=== PATIENT | female | born 1990 | race Two or more races ===

== ENCOUNTER 2025-02-17 12:42 | Outpatient (RCR) | payer MEDICAID, SELFPAY ==
--- NOTE | 2025-01-27 12:56 | XR_ITS ---
Examination: Biophysical profile, ultrasound Date and time of exam: January 27, 2025 1259 hours INDICATIONS: Diagnosis maternal obesity complicating Technique: Multiple transabdominal sonographic images of the pelvis abdomen obtained. Attention is directed to the breathing movement, gross body movement, amniotic fluid volume and tone. Findings: Amniotic fluid index 13.2 cm Total biophysical profile is 8 of 8. breathing movement is 2. Gross body movement is 2. tone is 2. Qualitative amniotic fluid volume is 2 Impression: Biophysical profile is 8 of 8.
[2025-01-27 13:37] VITALS: BP 133/79; PULSE 78; RESP 16; TEMP 36.7
--- NOTE | 2025-02-03 13:01 | XR_ITS ---
Examination: Biophysical profile, ultrasound Date and time of exam: February 03, 2025 1311 hours INDICATIONS: Maternal obesity, containing diagnosis Technique: Multiple transabdominal sonographic images of the pelvis abdomen obtained. Attention is directed to the breathing movement, gross body movement, amniotic fluid volume and tone. Findings: Amniotic fluid index 13.8 cm Total biophysical profile is 8 of 8. breathing movement is 2. Gross body movement is 2. tone is 2. Qualitative amniotic fluid volume is 2 Impression: Biophysical profile is 8 of 8.
[2025-02-03 13:34] VITALS: BP 119/76; PULSE 81; RESP 16
--- NOTE | 2025-02-10 12:37 | XR_ITS ---
Examination: Biophysical profile, ultrasound Date and time of exam: February 10, 2025 1257 hours INDICATIONS: Diagnosis maternal obesity, complicating Technique: Multiple transabdominal sonographic images of the pelvis abdomen obtained. Attention is directed to the breathing movement, gross body movement, amniotic fluid volume and tone. Findings: Amniotic fluid index 10.4 cm Total biophysical profile is 8 of 8. breathing movement is 2. Gross body movement is 2. tone is 2. Qualitative amniotic fluid volume is 2 Impression: Biophysical profile is 8 of 8.
[2025-02-10 13:14] VITALS: BP 122/72; PULSE 80; RESP 16; TEMP 36.7
--- NOTE | 2025-02-17 12:53 | XR_ITS ---
Examination: Biophysical profile, ultrasound Date and time of exam: February 17, 2025 1302 hours INDICATIONS: Diagnosis maternal obesity complicating Technique: Multiple transabdominal sonographic images of the pelvis abdomen obtained. Attention is directed to the breathing movement, gross body movement, amniotic fluid volume and tone. Findings: Amniotic fluid index 13.5 cm Total biophysical profile is 8 of 8. breathing movement is 2. Gross body movement is 2. tone is 2. Qualitative amniotic fluid volume is 2 Impression: Biophysical profile is 8 of 8.
[2025-02-17 13:21] VITALS: BP 134/78; PULSE 75; RESP 16; TEMP 36.8
== END 2025-02-17 23:59 | disposition home or self-care (01) ==
LOC: S4S1 12:42
PROVIDERS: Referring Provider Nurse Practitioner Women's Health; Visit Provider Nurse Practitioner Women's Health
DX: O99.213 Obesity complicating pregnancy, third trimester (principal); E66.9 Obesity, unspecified; Z3A.39 39 weeks gestation of pregnancy
CPT/HCPCS: 59025; 76819

== ENCOUNTER 2025-02-20 17:50 | Inpatient (IN) | payer MEDICAID, SELFPAY ==
[2025-02-20] VITALS (11 sets, daily range): BP systolic 126–158; BP diastolic 71–92; PULSE 69–85; RESP 16; TEMP 36.9–37.7; BMI 36.7
[2025-02-20] MEDS: RINGERS LACTATED 1000 ML 1,000 ML 100 ML IV (18:20)
[2025-02-20 18:29] LABS: Basophils % (Auto) 0 % (0-2.5); Eosinophils # (Auto) 0.1 Thou/mm3 (0.0-0.5); Eosinophils % (Auto) 1 % (0-10); Hematocrit 30.6 % (36.0-46.0); Hemoglobin 10.7 g/dL (12.0-16.0); Immature Granulocytes % (Auto) 0 % (0-0); Immature Granulocytes Auto 0.03 Thou/mm3 (0.00-0.00); Lymphocytes # (Auto) 2.3 Thou/mm3 (1.0-4.8); Lymphocytes % (Auto) 26 % (10-50); Mean Corpuscular Hemoglobin 27.6 pg (25.0-35.0); Mean Corpuscular Volume 79 fL (80-100); Monocytes # (Auto) 0.6 Thou/mm3 (0.0-0.8); Monocytes % (Auto) 6 % (0-12); Neutrophils # (Auto) 6.1 Thou/mm3 (1.8-7.7); Neutrophils % (Auto) 67 % (37-80); Nucleated Red Blood Cell % 0 /100 WBC (0); Platelet Count 288 Thou/mm3 (140-440); Red Blood Count 3.87 Miln/mm3 (4.00-5.20); White Blood Count 9.1 Thou/mm3 (3.6-11.0)
--- NOTE | 2025-02-20 19:26 | XR_ITS ---
Examination: Complete OB ultrasound greater than 14 weeks Date and time of exam: February 20, 2025 1946 hours INDICATIONS: Preinduction, diagnosis velamentous cord insertion Findings: Viable intrauterine single fetus with single amniotic sac presentation cephalic Placenta anterior grade 2 Umbilical cord insertion 3 vessel seen Amniotic fluid index 8.5 cm Cervix 4.6 cm No resistive scanner by bowel gas. Composite estimated gestational age based on BPD, head circumference, abdominal circumference, femur length is 39 weeks 2 days Estimated weight 3790 g. Survey of intracranial anatomy, spinal anatomy, abdominal anatomy, four-chamber heart performed with no abnormalities identified. Impression: Viable intrauterine gestation cephalic presentation.
--- NOTE | 2025-02-20 19:31 | ESHP_ITS ---
Documentation for date of: 02/20/25 OB Labor/Induct. HPI History of Present Illness Chief complaint: 34 y/o 40w 1d Female presents to L&D for IOL : 2 Para: 1 Term pregnancies: 1 pregnancies: 0 Living children: 0 History of Abortions: Spontaneous and Elective: 0 History of Vaginal deliveries: 1 History of sections: No History of : No JUAN C: 02/19/25 Gestational Age (weeks): 40 Gestational Age (days): 1 Indication for induction: medical complication History of present illness: 34 y/o Female presents to L&D for IOL due to velamentous cord insertion, and left lateral accessory lobe and Obesity. Cervix is 1/thick/-4 vertex ballotable, not engaged. GBS is positive. Pt's last sono from [facility] was on 01/07/25 SIUP measuring 33w 6d consistent with JUAN C. Humerus measures small for gestational age, all other biometry WNL. EFW 2499g, growth 70%ile, ELIAS is normal, anatomy is normal, placenta previa has resolved, placenta is anterior, left lateral, accessory lobe. presentation oblique, head right. Velamentous cord insertion is again noted. BPP 8/8. EFW 3700g History of Present Dating criteria: LMP confirmed by 1st trimester US Adequate Care: Yes Ultrasounds: normal 1st trimester US, normal mid trimester US and abnormal US findings (Velamentous cord insertion and accessory lobe in the placenta) Obstetrical complications: other (Anemia, velamentous cord insertion and accessory lobe) Labs Maternal Blood Type: A Pos Labs: Positive: Rubella Titre and Group Beta Strep, Negative: RPR, Hepatitis B, HIV, Chlamydia and Gonorrhea and Unknown: Herpes Type 1, Herpes Type 2 and Covid-19 Review of Systems Review of Systems Systems Reviewed: All systems reviewed, normal except as documented Past Medical History Surgical History SURGICAL: Negative Section Meds Home Medications and Allergies Home Medications ?Medication ?Instructions ?Recorded ?Confirmed ?Type vits no.124-ferrous fum 1 tab PO QDAY 0 10/05/19 History 27 mg iron-folic acid 800 mcg tablet ( Vitamin) Allergies Allergy/AdvReac Type Severity Reaction Status Date / Time No Known Drug Allergies Allergy Verified 10/05/19 06:40 OB Exam Physical Exam Vital signs: Temp Pulse BP 99.9 F 83 141/71 H 02/20/25 19:01 02/20/25 19:17 02/20/25 19:17 Constitutional Constitutional: no acute distress Routine HEENT Exam Head: Present normocephalic and atraumatic Eye: Present EOMI and PERRL ENT: Present mucous membranes moist Routine Neck Exam Neck: Present full ROM Routine Respiratory Exam Respiratory: Absent respiratory distress Routine Cardiovascular Exam Cardiovascular: Present RRR Routine Abdominal Exam Abdominal: Present soft and normoactive bowel sounds Comments: Gravid Uterus 3700g Routine Exam External: Present normal urethra appearance; Absent lesions Detailed Labor and Delivery Exam Dilation (cm): 1 Effacement (%): thick Cervix position: posterior station: -4 Consistency: medium Presentation: Vertex (Per RN exam) Membranes: intact Baseline heart rate: 125 monitor accelerations: 15x15 monitor decelerations: None buttermaker helper variability: Moderate (11-25) Contraction frequency (min): Irregular Routine Extremities Exam Extremities: Present full ROM Routine Back/Spine/Pelvis Exam Back/Spine: Present full ROM Routine Skin Exam Skin: Present intact, dry and warm Routine Neurological Exam Neurological: Present alert, oriented X3 and CN II-XII intact Routine Psychiatric Exam Psychiatric: Present normal affect and normal thought process OB Results Labs 02/20/25 18:10 Labs: Short CBC 02/20/25 Range/Units 18:10 WBC 9.1 (3.6-11.0) Thou/mm3 Hgb 10.7 L (12.0-16.0) g/dL Hct 30.6 L (36.0-46.0) % Plt Count 288 (140-440) Thou/mm3 OB Assessment & Plan Assessment and Plan (1) Encounter for induction of labor: Status: Acute (2) Velamentous insertion of umbilical cord: Status: Acute (3) Obesity affecting in third trimester: Status: Acute (4) Post term over 40 weeks: Status: Acute Additional Plan Induction method: per misoprostol protocol Plan: induction, anticipate NVD, GBS prophylaxis tx and consult MD guzman Additional Plan Comment: Routine Admit orders Ordered Complete sono for presentation and EFW Consult anesthesia for an epidural Ok to eat regular diet early in the induction process Intermittent monitoring is ok Dr. Hicks updated (2) Velamentous insertion of umbilical cord Qualifiers: Trimester: third trimester Qualified Code(s): O43.123 - Velamentous insertion of umbilical cord, third trimester (3) Obesity affecting in third trimester Qualifiers: Obesity type affecting : other obesity due to excess calories Q ualified Code(s): O99.213 - Obesity complicating , third trimester; E66.09 - Other obesity due to excess calories
[2025-02-20 19:45] LABS: Syphilis Nonreactive (Nonreactive)
[2025-02-20] MEDS: MISOPROSTOL 50 mCg TABLET PO (21:20)
[2025-02-20] MEDS: RINGERS LACTATED 500 ML 500 ML 999 ML IV (23:30)
[2025-02-21] VITALS (249 sets, daily range): BP systolic 94–178; BP diastolic 41–91; PULSE 59–172; RESP 16–19; TEMP 36.8–37.5; O2SAT 90–100
[2025-02-21] MEDS: MISOPROSTOL 50 mCg TABLET PO (03:22)
[2025-02-21] MEDS: RINGERS LACTATED 500 ML 500 ML 999 ML IV (04:35)
[2025-02-21] MEDS: TERBUTALINE SULF INJ 1 MG/ML VIAL 0.25 MG SC ×2 (05:24→08:07)
[2025-02-21] MEDS: Ampicillin Inj 2,000 MG in SODIUM CHLORIDE 0.9% (POP) 100 ML 200 MG IV (08:07)
--- NOTE | 2025-02-21 09:16 | PD.LDPN ---
Documentation for date of: 02/21/25 OB Labor Progress Note Pain Control Pain control: epidural Pelvic Exam Dilation (cm): 6 Effacement (%): 90 station: -1 Amniotic membrane status: Intact Contractions Monitor mode: External Contraction frequency: 2-3 Contraction phase: Contraction Contraction intensity: Strong Status status: Category l Assessment and Plan Assessment: active labor Plan OB labor note: continuous present management Comments: Pt is comfortable with her epidural She has received 1 dose of ampicillin 2 doses of cytotec and progressing well Updated Dr. Kurt Poe
[2025-02-21] MEDS: Ampicillin Inj 1,000 MG in SODIUM CHLORIDE 0.9% (Popper) 50 ML 50 MG IV ×2 (12:01→16:11)
--- NOTE | 2025-02-21 13:24 | PD.LDPN ---
Documentation for date of: 02/21/25 OB Labor Progress Note Pain Control Pain control: epidural Pelvic Exam Dilation (cm): 7 Effacement (%): 90 station: 0 Amniotic membrane status: Ruptured (AROM- clear) Contractions Monitor mode: External Contraction frequency: 2-4 Contraction phase: Contraction Contraction intensity: Moderate Status status: Category l Assessment and Plan Assessment: active labor Plan OB labor note: continuous present management Comments: Pt has received 2 doses of ampicillin for GBS AROM performed - clear fluids Fetus is an OP position, RN will place pt on peanut ball and frequent turning Dr. Hicks updated Anticipate
[2025-02-21] MEDS: RINGERS LACTATED 1000 ML 1,000 ML 100 ML IV (14:35)
--- NOTE | 2025-02-21 19:07 | PD.LDPN ---
Documentation for date of: 02/21/25 OB Labor Progress Note Pain Control Pain control: epidural Pelvic Exam Dilation (cm): 10 Effacement (%): 100 station: 0 Amniotic membrane status: Ruptured Contractions Monitor mode: External Contraction frequency: 1-2 Contraction pattern: Tachysystole Contraction phase: Contraction Contraction intensity: Moderate Status status: Category l Assessment and Plan Assessment: other (2ns stage) Plan OB labor note: continuous present management Comments: Pushed with pt for 1 hour no descend, fetus in OP presentation. Turned off the epidural and allow pt to feel pressure and push once fetus is lower station. Pt placed on peanut ball and low dose pitocin per protocol Anticipate
[2025-02-21] MEDS: OXYTOCIN in NS 30 units 30 UNIT/500 ML BAG IV (19:11)
[2025-02-21] MEDS: MINERAL OIL 30 ML UDC TOP (19:44)
--- NOTE | 2025-02-21 20:09 | PD.LDDELS ---
Data ([place]) Data Hx Section: No Maternal Blood Type: A Pos Rubella Titre: Positive RPR: Non-reactive Labs: Positive: Group Beta Strep, Negative: RPR, Hepatitis B, HIV, Chlamydia and Gonorrhea and Unknown: Herpes Type 1 and Herpes Type 2 : 2 Para: 1 Term: 1 : 0 Livin Abortions: Spontaneous & Theraputic: 0 Delivery Data ([place]) Labor Data Initiation of labor: Induction Induction/Augmentation Agent: Cytotec-PO and Artificial ROM ROM date: 02/21/25 ROM time: 13:10 Amniotic membrane rupture type: Artificial Amniotic fluid description: Clear Delivery Data EDC: 02/19/25 EDC calculated by:: LMP/early US confirmation Onset of labor date: 02/21/25 Onset of labor time: 07:30 Complete dilation date: 02/21/25 Complete dilation time: 17:40 [place] delivery date: 02/21/25 [place] delivery time: 19:46 Gestational age (weeks): 40 Gestational age (days): 2 Placenta delivery date: 02/21/25 Stage 1 total time: Labor - Stage 1 Duration 10 hours and 10 minutes Delivered by: Lilia Edouard Delivery nurse: Domenica Fraser RN [place] nurse: Rehan, RN Support person(s) at delivery: Mother, FOB Other staff at delivery: KENNY Patel, chief of staff doctor Method Delivery method: Normal Vaginal Delivery Presentation: Vertex position: OA Anesthesia Type Anesthesia Type: Epidural Delivery Room Medications Delivery room medications: Pitocin 20 u IV and other (TXA x2) Placenta Placenta delivery description: Spontaneous Cord blood sent to lab: Yes cord blood collection: Cord Blood Type Episiotomy Episiotomy description: None Lacerations #1: Vaginal: 1st degree Perineal repair Sutures used for repair: 3.0 Vicryl (CT) EBL Estimated blood loss (ml): 300 Umbilical Cord cord description: 3 Vessels Additional Procedures Patient pushed for an hour fetus was still in LOP position so we turned off the epidural and allowed patient to labor down and started Pitocin at 1 milliunits. An hour later patient started to feel a lot of pressure and pushed a couple of times and had an of a viable female . Infant's anterior shoulder delivered with gentle downward traction subsequent deliver the posterior shoulder and the body without complications. placed on mother's abdomen. Vigorous cry upon delivery. Cord was clamped. Cut by FOB. Cord blood obtained. Three-vessel cord noted. Placenta expelled spontaneously and intact. Mother sustained a small vaginal laceration. Repaired using a 3-[address] suture. Perineum intact. Excellent hemostasis achieved after vigorous fundal massage and removal of clots with the posterior fornix. Manual removal of clots from the uterus. EBL 300. Patient did receive IV Pitocin. TXA x 2. Ordered 2gm Ancef x1 now. Sponge and needle count correct. Mother and baby stable, skin to skin and bonding in LDR. Data ([place]) Data order: 1 [place]'s gender: Female weight (gms): 3470 g 1 minute: 8 5 minutes: 9
[2025-02-21] MEDS: IBUPROFEN TAB 400 MG TABLET 800 MG PO (20:14)
[2025-02-21] MEDS: BENZO/LANO/ALOE (Dermoplast) 60 GM CAN 1 SPRAY TOP (20:15)
[2025-02-21] MEDS: TRANEXAMIC ACID 1,000 MG IVPB 1,000 MG/100 ML BAG 200 MG IV ×2 (20:20→21:29)
[2025-02-21] MEDS: ACETAMINOPHEN 325 MG TABLET 650 MG PO (21:30)
[2025-02-22 00:17] VITALS: BP 118/75; PULSE 80; RESP 19; TEMP 36.9; O2SAT 98
[2025-02-22] MEDS: ceFAZolin 2 GM in SODIUM CHLORIDE 0.9% 100 ML IV (01:01)
[2025-02-22 03:39] LABS: Basophils # (Auto) 0.1 Thou/mm3 (0.0-0.2); Basophils % (Auto) 0 % (0-2.5); Eosinophils % (Auto) 0 % (0-10); Hematocrit 28.7 % (36.0-46.0); Immature Granulocytes % (Auto) 1 % (0-0); Immature Granulocytes Auto 0.14 Thou/mm3 (0.00-0.00); Lymphocytes # (Auto) 1.7 Thou/mm3 (1.0-4.8); Lymphocytes % (Auto) 7 % (10-50); Mean Corpuscular HGB Conc 34.8 g/dl (31.0-37.0); Mean Corpuscular Hemoglobin 27.8 pg (25.0-35.0); Mean Corpuscular Volume 80 fL (80-100); Monocytes # (Auto) 1.5 Thou/mm3 (0.0-0.8); Monocytes % (Auto) 6 % (0-12); Neutrophils # (Auto) 22.4 Thou/mm3 (1.8-7.7); Neutrophils % (Auto) 87 % (37-80); Nucleated Red Blood Cell % 0 /100 WBC (0); Platelet Count 247 Thou/mm3 (140-440); RDW Standard Deviation 37.8 fL (36.4-46.3); White Blood Count 25.7 Thou/mm3 (3.6-11.0)
[2025-02-22 05:20] VITALS: BP 121/80; PULSE 68; RESP 14; TEMP 36.5; O2SAT 98
--- NOTE | 2025-02-22 08:25 | ESPR_ITS ---
Subjective Subjective Interval history: day #1. Patient denies any primary complaint. She is voiding and ambulating and tolerating a regular diet. She is passing flatus.. She denies any dizziness or lightheadedness.. She denies any chest pain palpitation shortness of breath or lower extremity pain.. She denies any excessive vaginal bleeding. Exam Vital Signs Temp Pulse Resp BP Pulse Ox O2 Del Method 97.7 F 68 14 121/80 98 Room Air 02/22/25 05:20 02/22/25 05:20 02/22/25 05:20 02/22/25 05:20 02/22/25 05:20 02/22/25 05:20 Routine Respiratory Exam Comments: Clear to auscultation bilaterally Routine Cardiovascular Exam Comments: Regular rate and rhythm Routine Abdominal Exam Comments: Fundus is firm and nontender and nondistended Routine Extremities Exam Comments: Nontender Objective Labs 02/22/25 03:19 Labs: Laboratory Results - last 24 hr 02/22/25 03:19 WBC 25.7 H D RBC 3.60 L Hgb 10.0 L Hct 28.7 L MCV 80 MCH 27.8 MCHC 34.8 RDW Std Deviation 37.8 Plt Count 247 D Neut % (Auto) 87 H Lymph % (Auto) 7 L [place] % (Auto) 6 Eos % (Auto) 0 Baso % (Auto) 0 Neut # (Auto) 22.4 H Lymph # (Auto) 1.7 [place] # (Auto) 1.5 H Eos # (Auto) 0.0 Baso # (Auto) 0.1 Immature Gran # (Auto) 0.14 H Absolute Nucleated RBC 0.00 Immature Gran % 1 H Nucleated RBC % 0 Assessment & Plan Problem List (1) Encounter for induction of labor: Status: Acute (2) Velamentous insertion of umbilical cord: Status: Acute (3) Obesity affecting in third trimester: Status: Acute (4) Post term over 40 weeks: Status: Acute (5) Encounter for care after hospital delivery: Status: Acute Assessment and plan: day #1 Discharge home. Discharge instructions given. Follow-up in the office in 3 weeks. Time Spent With Patient Time: Total time spent is greater than 50% in coordination of care (as documented) at patient's floor/unit and/or counseling patient:
--- NOTE | 2025-02-22 08:28 | ESDS_ITS ---
DS: Providers Provider Date of admission: 02/20/25 17:50 Primary care physician: Physician No Primary/Family Admitting Provider: Lilia Edouard CNM Attending Provider on Admission: Aroldo Mcdonald MD Consults: 02/21/25 20:24 Referral Routine Comment: Attending Provider on DC: Aroldo Mcdonald MD Discharging Provider: Aroldo Mcdonald MD DS: Diagnosis Discharge Diagnosis (1) Encounter for induction of labor: Status: Acute Problem List Completed Was Problem List Reviewed/Reconciled?: Yes Summary/Hosp Course Brief History: 34 y/o Female presents to L&D for IOL due to velamentous cord insertion, and left lateral accessory lobe and Obesity. Cervix is 1/thick/-4 vertex ballotable, not engaged. GBS is positive. Pt's last sono from [facility] was on 01/07/25 SIUP measuring 33w 6d consistent with JUAN C. Humerus measures small for gestational age, all other biometry WNL. EFW 2499g, growth 70%ile, ELIAS is normal, anatomy is normal, placenta previa has resolved, placenta is anterior, left lateral, accessory lobe. presentation oblique, head right. Velamentous cord insertion is again noted. BPP 8/8. EFW 3700g Peripartum Data Delivery Method: Normal Vaginal Delivery Episiotomy Description: None Time Spent with Patient Time attestation: Total time spent providing and/or coordinating discharge services: Exam Vital Signs Temp Pulse Resp BP Pulse Ox O2 Del Method 97.7 F 68 14 121/80 98 Room Air 02/22/25 05:20 02/22/25 05:20 02/22/25 05:20 02/22/25 05:20 02/22/25 05:20 02/22/25 05:20 Discharge Plan Plan Patient Disposition: HOME (Self Care) Patient condition on transfer: Stable Prescriptions/Referrals Prescriptions/Med Rec: New docusate sodium [Colace] 100 mg capsule 100 mg PO BID Qty: 60 0RF ibuprofen 600 mg tablet 600 mg PO Q6H PRN (Reason: pain) Qty: 90 0RF lanolin 50 % ointment 1 applic topical TID PRN (Reason: skin irritation) Qty: 15 0RF Continued Vitamin 27 mg iron- 800 mcg Tablet 1 tab PO QDAY Referrals: No Primary/Family,Physician [Primary Care Provider] - Patient/Caregiver Discharge Instructions Meds to Beds: No Discharge Activity: activity as tolerated Other Discharge Activity Instructions:: Follow-up with Lilia Edouard CNM in 3 weeks Education Materials: After a Vaginal , : Caring for Yourself Print Language: Burmese Stand Alone Forms: [place] Award Info., Patient Portal Info Letter Discharge Order Discharge Orders: Discharge (Routine); Ordered 02/22/25 Ordered By: Aroldo Mcdonald Planned Discharge Date 02/22/25
[2025-02-22 08:30] VITALS: BP 113/79; PULSE 78; RESP 17; TEMP 36.6; O2SAT 98
[2025-02-22] MEDS: ceFAZolin/D5W 2 GM IV 2 GM/100 ML BAG IV ×2 (09:11→16:53)
[2025-02-22] MEDS: DOCUSATE SOD 100 MG CAPSULE PO (09:11)
[2025-02-22 10:00] LABS: Basophils # (Auto) 0.1 Thou/mm3 (0.0-0.2); Basophils % (Auto) 0 % (0-2.5); Eosinophils % (Auto) 0 % (0-10); Hematocrit 26.3 % (36.0-46.0); Hemoglobin 9.1 g/dL (12.0-16.0); Immature Granulocytes % (Auto) 0 % (0-0); Immature Granulocytes Auto 0.08 Thou/mm3 (0.00-0.00); Lymphocytes # (Auto) 2.9 Thou/mm3 (1.0-4.8); Lymphocytes % (Auto) 14 % (10-50); Mean Corpuscular HGB Conc 34.6 g/dl (31.0-37.0); Mean Corpuscular Hemoglobin 27.6 pg (25.0-35.0); Mean Corpuscular Volume 80 fL (80-100); Monocytes # (Auto) 1.3 Thou/mm3 (0.0-0.8); Monocytes % (Auto) 6 % (0-12); Neutrophils # (Auto) 17.1 Thou/mm3 (1.8-7.7); Neutrophils % (Auto) 80 % (37-80); Nucleated Red Blood Cell % 0 /100 WBC (0); Platelet Count 220 Thou/mm3 (140-440); RDW Standard Deviation 38.2 fL (36.4-46.3); White Blood Count 21.4 Thou/mm3 (3.6-11.0)
[2025-02-22 13:00] VITALS: BP 120/71; PULSE 86; RESP 18; TEMP 36.6; O2SAT 98
[2025-02-22 15:51] VITALS: BP 119/80; PULSE 85; RESP 17; TEMP 36.6; O2SAT 98
[2025-02-22 20:00] VITALS: BP 125/84; PULSE 96; RESP 16; TEMP 36.3; O2SAT 97
== END 2025-02-22 21:25 | disposition home or self-care (01) | DRG 560 ==
LOC: S4SX 02-21 20:04 → S4NX 02-21 22:11
PROVIDERS: Admitting Provider Nurse Practitioner Women's Health; Visit Provider Specialist
DX: O48.0 Post-term pregnancy (principal); Z37.0 Single live birth; Z3A.40 40 weeks gestation of pregnancy; O70.0 First degree perineal laceration during delivery; O99.02 Anemia complicating childbirth; O99.214 Obesity complicating childbirth; E66.09 Other obesity due to excess calories; O43.123 Velamentous insertion of umbilical cord, third trimester
CPT/HCPCS: 36415; 59409; 76805; 85025; 86780; 86850; 86900; 86901; 94762; J0290; J0689; J0690; J2590; J2795; J3105; J3490; J7050; J7120; A9270